=== PATIENT | male | born 1985 | race Two or more races ===

== ENCOUNTER 2025-03-25 16:01 | Emergency (ER) | payer MEDICAID, OTHER ==
[~2025-03-25] VITALS: Ht 170.2 cm; Wt 57.0 kg
--- NOTE | 2025-03-25 16:08 | ECG ---
[facility] Test Date: 2025-03-25 Test Time: 16:03:11 Pat Name: PHIL SOUTH Department: ED Room: Gender: M Outreach Representative: NAN : 1985 Requested By: CORBIN GILMORE Order Number: [id number] Reading MD: Toby Betancourt Measurements Intervals [place] Rate: 79 P: 17 CA: 267 QRS: 95 QRSD: 76 T: 84 QT: 423 QTc: 486 Interpretive Statements Sinus rhythm Prolonged CA interval Borderline right axis deviation Borderline T wave abnormalities Borderline prolonged QT interval Electronically Signed On 03-28-2025 18:40:46 PDT by Toby Betancourt Please click the below link to view image of tracing.
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
[2025-03-25 16:48] LABS: Hematocrit 43.5 % (41.0-53.0); Hemoglobin 15.2 g/dL (13.5-17.5); Mean Corpuscular Hemoglobin 36.4 pg (28.0-32.0); Mean Corpuscular Volume 104.4 fL (80.0-100.0); Nucleated Red Blood Cells % 0.1 %
[2025-03-25 16:58] LABS: Potassium 3.7 mmol/L (3.5-5.1); Sodium 142 mmol/L (136-145)
[2025-03-25 16:59] LABS: Anion Gap 22 (5-15); Calcium 9.6 mg/dL (8.7-10.4); Carbon Dioxide 23 mmol/L (20-31)
[2025-03-25 17:04] LABS: BUN/Creatinine Ratio 7.9 (10.0-20.0); Glucose 81 mg/dL (74-106)
[2025-03-25 17:08] LABS: Blood Urea Nitrogen 6 mg/dL (9-23); Chloride 97 mmol/L (98-107)
--- NOTE | 2025-03-25 17:43 | DVH ---
CHEST RADIOGRAPH Indication: cp Technique: Single frontal view of the chest was obtained COMPARISON: None FINDINGS: Lines and Tubes: None Lungs: Clear Pleura: No effusion. No pneumothorax. Cardiomediastinal contours: Unremarkable Bones: Unremarkable IMPRESSION: 1. No acute disease.
[2025-03-25 18:45] VITALS: BP 150/89; PULSE 88; RESP 18; TEMP 97.8; O2SAT 98
== END 2025-03-25 18:48 | disposition home or self-care (01) ==
LOC: ER 16:01
DX: R07.89 Other chest pain (principal); Z79.899 Other long term (current) drug therapy
CPT/HCPCS: 36415; 71045; 80048; 84484; 85025; 93005